=== PATIENT | female | born 1960 | race Caucasian/White ===

== ENCOUNTER 2019-08-08 15:00 | Outpatient (RCR) | payer OTHER, SELFPAY ==
--- NOTE | 2019-07-11 16:37 | PTOPEVAL ---
PHYSICAL THERAPY EVALUATION AND PLAN OF CARE Thank you for referring Cristina to [facility]. Please review, sign, date and return this plan of care ESTEPHANIA. She will be seen 1x/wk x 2 wks, 0 times 3rd week, 1 time 4th week. I agree with and certify that the following plan of care is medically necessary. Referring Physician Date Admitting Provider: Attending Provider: Gaurang Vidal MD Referring Provider: *PT Outpatient Evaluation Start: 07/11/19 14:46 Freq: Status: Active Protocol: Document 07/11/19 14:45 ALEJANDRO (Rec: 07/11/19 16:24 ALEJANDRO [id number]) Therapy Assessment Status Assessment Status Assessment Status Evaluation Outpatient Past Medical History Neurological History Hx Neurological Disorders No Significant History Cardiovascular History Hx Hypertension Yes Respiratory History Hx Asthma Yes: very slight Gastrointestinal History Hx Gastrointestinal Disorders No Significant History Genitourinary History Hx Genitourinary Disorders No Significant History Musculoskeletal History Hx Joint Replacement Yes: R 09/2017 Hx Other Musculoskeletal Disorders Yes: bilat foot pain Hematological History Hx Hematological Disorders No Significant History Endocrine History Hx Endocrine Disorders No Significant History Reproductive History Hx Reproductive Disorders No Significant History Evaluation Information Problem Diagnosis R posterior tibial tendinitis, flat foot pain Onset few months after completing PT for R TKA Subjective Information Wears ankle brace and has Query Text:As Reported By Patient/ orthotics - wears supportive Family footwear After prolonged sitting - when went to stand up - foot didn't feel like it was on her leg correctly. Orthotics and ankle brace have helped the situation. Scheduled to have another brace fabricated - customized - will come up past ankle. Received injection last week in each foot - feeling better - decreased mobility with R ankle. 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
--- NOTE | 2019-08-08 16:39 | PTOPEVAL ---
PHYSICAL THERAPY DISCHARGE SUMMARY Thank you for referring Cristina to [facility]. She was seen for 4 visits. Good progress was made, most goals were met. I agree with Cristina's discharge from physical therapy. Referring Physician Date Admitting Provider: Attending Provider: Gaurang Vidal MD Referring Provider: *PT Outpatient Evaluation Start: 07/11/19 14:46 Freq: Status: Active Protocol: Document 08/08/19 15:10 ALEJANDRO (Rec: 08/08/19 16:32 ALEJANDRO [id number]) Therapy Assessment Status Assessment Status Assessment Status Discharge Problem Subjective Information Cristina states that she will Query Text:As Reported By Patient/ have pain in her feet when she Family changes shoes. The pain will go away after she has had the new shoes on for awhile. Some increase in L foot pain today from wearing newer shoes last night with increased standing. She reports that she does her HEP on a regular basis. To receive R foot brace 08/12/19. Pain Assessment Timing of Pain Assessment Timing of Pain Assessment Assessment Pain Scale Pain Scale Used Numeric (1 - 10) Self Report Pain Assessment Right Ankle(s) Reported Pain Level 0 Pain Description Aching,Sharp,Soreness Current Pain Intensity 0 Lowest Pain Intensity 0 Greatest Pain Intensity 5 Pain Aggravating Factors Palpation,Walking Other Pain Aggravating Factors certain ankle motions - inversion as well as dorsiflexion w eversion Interventions Used By Clinicians Exercise,Manual Therapy Techniques Pain Score Pain Score 0: Self Report Lower Extremity Range of Motion Ankle/Foot Range of Motion Right Ankle Dorsiflextion With Knee Flexed 5 Range of Motion - Active Ankle/Toe Range of Motion Limitations Muscle Length Restriction,Soft Tissue Restriction Ankle Range of Motion Comments ankle maintained in neutral position Lower Extremity Muscle Strength Testing Ankle Strength Right Toe Strength Comments anterior tibialis 5 posterior tibialis 4 eversion with dorsiflexion 5 eversion with plantarflexion 5 Palpation Assessment Palpation Palpation improved mobility with medial foot - tarsals,
== END 2019-09-26 13:56 | disposition home or self-care (01) ==
LOC: ANHHIPT 15:00
PROVIDERS: PCP Internal Medicine; Visit Provider Orthopaedic Surgery
DX: M21.41 Flat foot [pes planus] (acquired), right foot (principal); M25.571 Pain in right ankle and joints of right foot
CPT/HCPCS: 97110; 97140; 97162

== ENCOUNTER 2020-03-30 00:53 | Outpatient (CLI) | payer OTHER, SELFPAY ==
[2020-03-30 19:35] LABS: SARS-CoV-2 RNA PCR Negative
== END 2020-03-30 00:54 | disposition home or self-care (01) ==
LOC: ANHCOVIDDT 00:53
PROVIDERS: PCP Internal Medicine; Visit Provider Internal Medicine Gastroenterology
DX: Z01.812 Encounter for preprocedural laboratory examination (principal); Z11.59 Encounter for screening for other viral diseases
CPT/HCPCS: 87635; C9803; U0003

== ENCOUNTER 2020-04-01 01:27 | Day surgery (SDC) | payer OTHER, SELFPAY ==
[2020-03-24 14:18] VITALS: BMI 40.3
[2020-04-01] MEDS: LACTATED RINGERS 1,000 ML 150 ML IV CONT (07:09)
[2020-04-01 07:11] VITALS: BP 152/60; PULSE 58; RESP 18; TEMP 37.2; O2SAT 99
--- NOTE | 2020-04-01 07:37 | P.PNAN_ITS ---
Anes - Initial Pre Proc Eval Procedure: Operation Date: 04/01/20 08:00 Proposed Procedures p Screening Colonoscopy - Du Winslow MD Date/Time: 04/01/20 07:37 Surgeon: Du Winslow MD Pre Op Diagnosis: neoplasm screen, pers and family hx colon polyps Patient Data Age: 59 Gender: F Height: 5 ft 5 in Weight: 109.5 kg Last Vital Signs Temp 98.9 F 04/01/20 07:11 Pulse 58 L 04/01/20 07:11 Resp 18 04/01/20 07:11 BP 152/60 H 04/01/20 07:11 Pulse Ox 99 04/01/20 07:11 Allergies Allergy/AdvReac Type Severity Reaction Status Date / Time lisinopril Allergy Intermediate Lips Swell Verified 04/01/20 07:06 Penicillins Allergy Unknown Rash Verified 04/01/20 07:06 Sulfa (Sulfonamide Allergy Unknown Rash Verified 04/01/20 07:06 Antibiotics) Home Medications Medication Instructions Recorded Confirmed Type cholecalciferol (vitamin D3) 25 2,000 unit PO DAILY 07/04/19 04/01/20 History mcg (1,000 unit) capsule omega-3 fatty acids 1,000 mg 1,000 mg PO DAILY 07/04/19 04/01/20 History capsule albuterol sulfate [Ventolin HFA] 1 puff INHALATION PRN PRN 03/24/20 04/01/20 History clindamycin HCl 600 mg PO BID 03/25/20 03/25/20 History hydrochlorothiazide 12.5 mg PO QAM 03/25/20 04/01/20 History Patient hx anesthesia problems: none Family hx anesthesia problems: none [facility] Past Medical History Medical History (Updated 04/01/20 @ 07:37 by Michael Collins MD) Asthma HTN (hypertension) Surgical History Surgical History (Updated 02/24/20 @ 09:23 by Karla Whitehead MA) History of knee replacement Social History Social History Smoking status: Never smoker Alcohol intake: never Substance use: unknown Gender identity (if verbalized by the patient): Female Spiritual care concerns: No Anes - Eval Final PreProcedure Day of Procedure 04/01/20 07:37 Patient weight: morbidly obese Heart: regular rate and rhythm Lungs: clear to auscultation Airway: Mallampati scale class II Neurological: alert and oriented Last oral intake: >/= 8 hours ASA classification: III Emergent: no Anesthetic plan: proceed Anesthesia type and monitoring: general GIVS and standard monitoring Informed Consent: The patient's anesthetic plan and its attendant risks and benefits were discussed with the patient/family/POA. Questions were solicited and answers provided to the satisfaction of the patient/family/POA.
--- NOTE | 2020-04-01 07:50 | WPDGICN ---
Assessment and Plan Assessment and plan (1) Family history of colonic polyps: Code(s): Z83.71 - Family history of colonic polyps Status: Acute Assessment and Plan: Because of patient's own personal history of colon polyps as well as family history of colon polyps in her father colonoscopy will be planned at this time and has been suggested at 5 year intervals in the future. (2) History of colon polyps: Code(s): Z86.010 - Personal history of colonic polyps Status: Acute GI Consult Note Consult date/time: 04/01/20 07:50 HPI: Cristina Sewell is a 59 year old female Seen in evaluation at the request of Dr. Teran. Patient presents for neoplasia screening. Patient has a prior history of colon polyps her father has had colon polyps. Patient states that her current weight appetite bowel movements are normal. She denies abdominal pain. She denies any bleeding. Her bowel habits are normal. Review of Systems Review of Systems: All systems reviewed & are unremarkable except as noted in HPI and below PMFSH Past Medical History Medical History Asthma HTN (hypertension) Surgical History Surgical History History of knee replacement Family History Family History Father Hypertension Family history of chronic obstructive pulmonary disease Mother Hypertension Family history of diabetes mellitus in first degree relative Grandparent Hypertension Diabetes mellitus Other Family history of Alzheimer's disease Family history of arthritis Family history of gout Family history of hearing loss Family history of lung disease Social History Social History Smoking status: Never smoker Alcohol intake: never Substance use: unknown Gender identity (if verbalized by the patient): Female Spiritual care concerns: No Meds Home Medications and Allergies Home Medications Medication Instructions Recorded Confirmed Type cholecalciferol (vitamin D3) 25 2,000 unit PO DAILY 07/04/19 04/01/20 History mcg (1,000 unit) capsule omega-3 fatty acids 1,000 mg 1,000 mg PO DAILY 07/04/19 04/01/20 History capsule albuterol sulfate [Ventolin HFA] 1 puff INHALATION PRN PRN 03/24/20 04/01/20 History clindamycin HCl 600 mg PO BID 03/25/20 03/25/20 History hydrochlorothiazide 12.5 mg PO QAM 03/25/20 04/01/20 History Allergies Allergy/AdvReac Type Severity Reaction Status Date / Time lisinopril Allergy Intermediate Lips Swell Verified 04/01/20 07:06 Penicillins Allergy Unknown Rash Verified 04/01/20 07:06 Sulfa (Sulfonamide Allergy Unknown Rash Verified 04/01/20 07:06 Antibiotics) Vital Signs Vital Signs - 24 hr 04/01/20 07:11 Temperature 98.9 F Pulse Rate 58 L Respiratory Rate 18 Blood Pressure 152/60 H Pulse Oximetry 99 Exam Narrative: Exam Narrative: Physical exam reveals patient to be alert. Vital signs are stable. HEENT exam unremarkable. Lungs are clear to auscultation and percussion. Heart is without murmur or extra sounds. Abdominal exam is somewhat obese. Bowel sounds are present soft nontender with no hepatosplenomegaly. Digital external rectal exam is normal.
[2020-04-01 08:26] VITALS: BP 113/59; PULSE 66; RESP 16; O2SAT 100
[2020-04-01 08:36] VITALS: BP 116/59; PULSE 64; RESP 22; O2SAT 100
[2020-04-01 08:46] VITALS: BP 133/80; PULSE 58; RESP 21; O2SAT 100
== END 2020-04-01 08:53 | disposition home or self-care (01) ==
PROVIDERS: PCP Internal Medicine; Visit Provider Internal Medicine Gastroenterology
PROC: 0DJD8ZZ Inspection of Lower Intestinal Tract, Via Natural or Artificial Opening Endoscopic (ICD-10-PCS; CPT 45378; principal; 2020-04-01 08:00)
DX: Z12.11 Encounter for screening for malignant neoplasm of colon (principal); D12.2 Benign neoplasm of ascending colon; D12.5 Benign neoplasm of sigmoid colon; K57.30 Diverticulosis of large intestine without perforation or abscess without bleeding; K64.8 Other hemorrhoids; I10 Essential (primary) hypertension; J45.909 Unspecified asthma, uncomplicated; Z83.71 Family history of colonic polyps; E66.01 Morbid (severe) obesity due to excess calories; Z68.41 Body mass index [BMI] 40.0-44.9, adult
CPT/HCPCS: 45385; 88305; J2001; J2704; J7120

== ENCOUNTER → 2020-04-14 13:22 | Outpatient (CLI) | payer OTHER, SELFPAY ==
--- NOTE | ~2020-04-14 | MM_ITS ---
EXAMINATION: MM screening fred BI w wen HISTORY: Screening mammogram TECHNIQUE: Craniocaudal and mediolateral oblique 3-D tomosynthesis images were obtained and synthetic 2-D images were generated. CAD analysis was submitted and interpreted. COMPARISON: 01/14/2019, 05/22/2017, 03/27/2016 bilateral digital screening mammogram examinations BREAST PARENCHYMAL COMPOSITION: There are scattered areas of fibroglandular density. FINDINGS: Stable mild fibroglandular asymmetry. There is no evidence of suspicious mass, calcificatio n, or architectural distortion to suggest malignancy in either breast. There has been no suspicious i nterval change. IMPRESSION: 1. No mammographic evidence of malignancy. 2. Recommend routine screening mammography in one year. BI-RADS Category 2: Benign finding(s). Reviewed, dictated and finalized at location A.
--- NOTE | ~2020-04-14 | DEXA_ITS ---
Bone Density Report Name: Cristina Sewell Age: 59 Sex: Female Ethnicity: White Date of : 1960 Indication: postmenopausal; screening for osteoporosis; height loss; asthma or emphysema; Referring Provider: Myrtle Lazo Study: Bone densitometry was performed. Exam Date: April 14, 2020 Accession number: [id number] Bone Density: Region BMD T-score Z-score Classification AP Spine (L1-L4) 1.091 0.4 1.9 Normal Femoral Neck (Left) 0.778 -0.6 0.7 Normal Total Hip (Left) 0.969 0.2 1.3 Normal Femoral Neck (Right) 0.792 -0.5 0.8 Normal Total Hip (Right) 0.928 -0.1 0.9 Normal Total Hip Mean 0.949 0.1 1.1 Normal World Health Organization criteria for BMD impression classify patients as: Normal (T-score at or above -1.0), Osteopenia (T-score between -1.0 and -2.5), or Osteoporosis (T-score at or below -2.5). 10-year Fracture Risk: FRAX not reported because: All T-scores for Spine Total, Hip Total, Femoral Neck at or above -1.0 Previous Exams: Region Exam Age BMD T-score BMD Change BMD Change Date g/cm2 vs Baseline vs Previous AP Spine(L1-L4) 04/14/2020 59 1.091 0.4 0.015 0.015 02/05/2015 54 1.077 0.3 Total Hip(Left) 04/14/2020 59 0.969 0.2 -0.081* -0.081* 02/05/2015 54 1.049 0.9 Total Hip(Right) 04/14/2020 59 0.928 -0.1 -0.076* -0.076* 02/05/2015 54 1.004 0.5 *Denotes significance at 95% confidence level, LSC for AP Spine = 0.022 g/cm2, LSC for Total Hip = 0.027 g/cm2 Clinical Information Provided by Patient: Has used the following medications: Vitamin D Has the following medical conditions: Asthma or Emphysema Patient maximum height was 65 Menopause Age: 50 No regular weight bearing exercise Drinks caffeinated beverages Onset of menses at age 10 Number of children 2 Impression: The patient has normal bone mass. The BMD for the Total Hip(Left) decreased, changing by -0.081 since the last DXA exam. The BMD for the Total Hip(Right) decreased, changing by -0.076 since the last DXA exam. Discussion: BONE DENSITY IS ABOVE THE MINIMUM DESIRABLE LEVEL AT ALL SKELETAL SITES TESTED. This patient?s bone mineral density is above the minimum desirable level (T-score -1.0 or better) at all sites measured. The patient should follow a healthful lifestyle (good nutrition with adequate calcium and vitamin D, and appropriate weight-bearing exercise). Follow-Up: Consider repeating this
== END ==
PROVIDERS: Visit Provider Student in an Organized Health Care Education/Training Program
DX: Z12.31 Encounter for screening mammogram for malignant neoplasm of breast (principal); Z78.0 Asymptomatic menopausal state
CPT/HCPCS: 77063; 77067; 77080

== ENCOUNTER 2021-01-27 09:37 | Outpatient (CLI) | payer OTHER, SELFPAY ==
--- NOTE | 2021-01-27 10:30 | ECG_ITS ---
Measurements Intervals Cal[place] Rate: 47 P: 36 SD: 177 QRS: -17 QRSD: 100 T: 47 QT: 410 QTc: 363 Interpretive Statements SINUS BRADYCARDIA VOLTAGE CRITERIA FOR LVH POOR R WAVE PROGRESSION, ANTERIOR LEADS ABNORMAL ECG Electronically Signed On 01-27-2021 15:54:29 CDT by Brant Matson D.O.
[2021-01-27 10:58] LABS: Basophils Percent Auto 0.6 % (0.2-1.2); Eosinophils Absolute Auto 0.2 K/mm3 (0-0.3); Eosinophils Percent Auto 4.1 % (0-4.4); Hematocrit 40.2 % (37.0-47.0); Immature Granulocyte Absolute 0.01 K/mm3 (0.00-0.031); Immature Granulocyte Percent A 0.2 % (0-0.5); Lymphocytes Absolute Auto 1.61 K/mm3 (0.9-3.2); Lymphocytes Percent Auto 32.7 % (18.3-44.2); Mean Corpuscular HGB Conc 32.3 g/dl (32-36); Monocytes Absolute Auto 0.5 K/mm3 (0.1-0.6); Monocytes Percent Auto 10.8 % (2.6-8.5); Neutrophils Absolute Auto 2.5 K/mm3 (1.3-6.7); Neutrophils Percent Auto 51.6 % (45.5-73.1); Platelet Count Result 166 k/mm3 (150-375); Red Blood Count 4.06 M/mm3 (4.2-5.4); Red Cell Distribution Width 12.2 % (11.5-14.5); White Blood Count 4.9 K/mm3 (4.5-10.0)
[2021-01-27 11:07] LABS: Prothrombin Time 13.8 Seconds (11.1-14.7)
[2021-01-27 11:08] LABS: Partial Thromboplastin Time 31.8 SECONDS (22.3-36.8)
[2021-01-27 11:09] LABS: Anion Gap 8 mmol/L (8-16); Blood Urea Nitrogen 18 mg/dL (7-17); Calcium 9.7 mg/dL (8.4-10.2); Carbon Dioxide 27 mmol/L (22-30); Chloride 106 mmol/L (98-107); Estimated Glomerular Filt Rate > 60; Glucose 83 mg/dL (65-105); Potassium 3.8 mmol/L (3.4-5.0); Sodium 141 mmol/L (137-145)
[2021-01-27 11:11] LABS: Hemoglobin A1C 5.3 % (<5.7)
[2021-01-27 11:39] LABS: Add Urine Microscopic? YES; Appearance Urine Clear (Clear); Bilirubin Urine Negative (Negative); Blood Urine 1+ (Negative); Color Urine Yellow (Yellow); Glucose Urine UA Negative (Negative); Ketones Urine Negative (Negative); Leukocyte Esterase Ur 3+ LEU/UL (Negative); Nitrate Urine Negative (Negative); Protein Urine Negative (Negative); Specific Grav Ur 1.015 (1.001-1.035); Urobilinogen Urine Negative mg/dL (<2.0)
[2021-01-27 12:37] LABS: Bacteria Urine Trace /hpf; RBC Urine 0-2 /hpf (0-2); Squamous Epithelial Cell Urine Few /hpf (Few); WBC Urine 0-3 /hpf (0-3)
[2021-01-27 18:34] LABS: Urine Cotinine NEGATIVE
== END 2021-01-27 09:38 | disposition home or self-care (01) ==
PROVIDERS: PCP Internal Medicine; Visit Provider Orthopaedic Surgery
DX: M17.12 Unilateral primary osteoarthritis, left knee (principal); Z01.818 Encounter for other preprocedural examination; R94.31 Abnormal electrocardiogram [ECG] [EKG]
CPT/HCPCS: 80048; 80307; 81001; 82040; 83036; 85025; 85610; 85730; 86850; 86900; 86901; 87081; 93005

== ENCOUNTER → 2021-02-05 00:34 | Outpatient (CLI) | payer OTHER, SELFPAY ==
[2021-02-05 17:56] LABS: SARS-CoV-2 RNA PCR Negative
== END ==
PROVIDERS: PCP Internal Medicine; Visit Provider Orthopaedic Surgery
DX: Z01.812 Encounter for preprocedural laboratory examination (principal); Z20.822 Contact with and (suspected) exposure to COVID-19
CPT/HCPCS: C9803; U0003; U0005

== ENCOUNTER 2021-02-09 16:13 | Observation (INO) | payer OTHER, SELFPAY ==
[2021-01-27 09:53] VITALS: BP 145/60; PULSE 59; RESP 18; TEMP 37.4; O2SAT 99; BMI 39.6
--- NOTE | 2021-02-07 12:51 | WPDANESEPPF ---
Anes - Initial Pre Proc Eval Procedure: Operation Date: 02/08/21 07:30 Proposed Procedures p Left Total Knee Arthroplasty - Yony Stuart MD Date/Time: 02/07/21 12:51 Surgeon: Yony Stuart MD Pre Op Diagnosis: left knee djd Patient Data Age: 60 Gender: F Height: 1.64 m Weight: 106.4 kg Last Vital Signs Temp 37.4 C 01/27/21 09:53 Pulse 59 L 01/27/21 09:53 Resp 18 01/27/21 09:53 BP 145/60 H 01/27/21 09:53 Pulse Ox 99 01/27/21 09:53 Allergies Allergy/AdvReac Type Severity Reaction Status Date / Time lisinopril Allergy Severe FACIAL Unverified 02/08/21 06:16 SWELLING,Lips Swell clindamycin Allergy Intermediate RASH, Verified 01/31/21 09:52 Nausea, Vomiting Penicillins Allergy Intermediate Rash, Verified 01/31/21 09:52 NAUSEA, VOMITING Sulfa (Sulfonamide Allergy Intermediate Hives / Unverified 02/08/21 06:16 Antibiotics) Red Face,Rash Home Medications Medication Instructions Recorded Confirmed Type cholecalciferol (vitamin D3) 25 2,000 unit PO DAILY 07/04/19 02/08/21 History mcg (1,000 unit) capsule omega-3 fatty acids 1,000 mg 1,000 mg PO DAILY 07/04/19 02/08/21 History capsule albuterol sulfate [Ventolin HFA] 1 puff INHALATION PRN PRN 03/24/20 02/08/21 History hydrochlorothiazide 12.5 mg tablet 12.5 mg PO QAM #90 tablet 07/27/20 02/08/21 Rx ciprofloxacin HCl 500 mg tablet 500 mg PO Q12H 14 Days #28 tablet 01/28/21 02/08/21 Rx ECG: Date of Service: 01/27/21 Procedure(s): CA 12 lead EKG Accession Number(s): [id number] cc: ~ Measurements Intervals [place] Rate: 47 P: 36 NM: 177 QRS: -17 QRSD: 100 T: 47 QT: 410 QTc: 363 Interpretive Statements SINUS BRADYCARDIA VOLTAGE CRITERIA FOR LVH POOR R WAVE PROGRESSION, ANTERIOR LEADS ABNORMAL ECG Electronically Signed On 01-27-2021 15:54:29 CDT by Brant Matson D.O. Dictated By: Brant Matson DO 01/27/21 1554 Patient hx anesthesia problems: none Family hx anesthesia problems: none PMFSH Past Medical History Medical History (Updated 02/07/21 @ 12:53 by Diego Lynn MD) Asthma Dyslipidemia Family history of colonic polyps History of colon polyps HTN (hypertension) Left knee DJD Obesity Preoperative clearance Urge incontinence UTI (urinary tract infection) Vaccine counseling Wears glasses Surgical History Surgical History History of arthroplasty of right knee History of knee replacement Family History Family History Father Hypertension Family history of chronic obstructive pulmonary disease Mother Hypertension Family history of diabetes mellitus in first degree relative Grandparent Hypertension Diabetes mellitus Other Family history of Alzheimer's disease Family history of arthritis Family history of gout Family history of hearing loss Family history of lung disease Social History Social History Second hand tobacco smoke exposure: No Alcohol intake: never Substance use: never Substance use type: does not use Living arrangements: with family Additional living arrangements comments: HUSB Gender identity (if verbalized by the patient): Female Spiritual care concerns: No Anes - Eval Final PreProcedure Day of Procedure 02/07/21 12:51 Patient weight: obese Heart: regular rate and rhythm Lungs: clear to auscultation and normal air movement Airway: Mallampati scale class II Neurological: alert and oriented Last oral intake: >/= 8 hours ASA classification: III Emergent: no A
--- NOTE | 2021-02-07 12:55 | WPDANESPNB ---
Anes - Peripheral Nerve Block Date/Time: 02/07/21 12:55 I have discussed with the patient/family/POA the placement of a peripheral nerve block for post-operative pain management, including associated risks, benefits, complications, and side effects. Alternative methods of post-operative analgesia were detailed. Questions were solicited and answers provided to the satisfaction of the patient/family/POA. Time-Out: A pre-procedural Time-Out was completed immediately before starting the procedure and confirmed: Patient Identification, Site, Procedure, Patient Position and the Availability of Requisite Equipment. Clinical Indications: Acute post-operative pain management requested by the operative surgeon. Nerve Block Insertion Note Anes-nerve block: adductor canal left Patient position: supine Skin prep: chlorhexidine Needle: 22 gauge, stimulating, insulated echogenic needle. Needle length: 80 mm Technique: ultrasound Technique comment: in plane Injectate: bupivacaine 0.5% with epi 5 mcg/ml (30cc) Observations: tolerated well Complications: none Procedure start time:: 725 Procedure end time:: 730
[2021-02-08] VITALS (23 sets, daily range): BP systolic 109–140; BP diastolic 37–71; PULSE 55–94; RESP 12–18; TEMP 36.1–36.7; O2SAT 92–100
[2021-02-08] MEDS: ACETAMINOPHEN 500 MG TABLET 1000 MG PO (06:26)
[2021-02-08] MEDS: LACTATED RINGERS 1,000 ML 30 ML IV CONT ×3 (06:33→13:00)
--- NOTE | 2021-02-08 07:20 | WPDHPUPDATE1 ---
History and Physical Update Update Date/Time: 02/08/21 07:20 History and Physical has been reviewed, including an updated exam of the patient. There are NO changes in the patient's condition. Risks, benefits, and alternatives have been discussed and questions answered. Patient agrees to proceed with procedure.
[2021-02-08] MEDS: TRANEXAMIC ACID 1,000MG/ISO100 1,000 MG/100 ML BAG 200 MG IVPB (07:24)
[2021-02-08] MEDS: ceFAZolin 2 GM/D5W 50 ML 2 GM/50 ML BAG IVPB ×3 (07:35→23:07)
[2021-02-08] MEDS: GENTAMICIN BONE CEMENT REFOBACIN 1 EACH TOPICAL (09:13)
[2021-02-08] MEDS: TRANEXAMIC ACID 1,000 MG/10 ML AMPUL 1000 MG IV PUSH (09:52)
[2021-02-08] MEDS: fentaNYL CITRATE INJ (*CRX) 100 MCG/2 ML VIAL 25 MCG IV PUSH ×7 (11:12→13:04)
--- NOTE | 2021-02-08 11:30 | P.OP_ITS ---
Procedure Note - Detailed Date of Procedure 02/08/21 Pre-op Diagnosis left knee djd Post-op Diagnosis same Procedure Performed L TKA Surgeon Yony Stuart MD Anesthesia general Indications L KNEE DJD Description of Procedure THE LEFT KNEE WAS PREPPED AND DRAPED IN THE STERILE FASHION. A MIDLINE SKIN INCISION WAS MADE. A MEDIAL PARAPATELLAR ARTHROTOMY WAS MADE. THE PATELLA WAS EVERTED. THERE WAS TRICOMPARTMENT DJD. THERE WAS MINIMAL PATELLA DJD. AN INTR AMEDULLARY LACI WAS PLACED IN THE FEMUR. A DISTAL FEMORAL CUT WAS MADE IN 5 DEGREES OF VALGUS REMOVING APPROXIMATELY 9 MM OF BONE FROM THE DISTAL FEMUR. THE FEMUR WAS SIZED TO 72.5. A 72.5 FEMORAL CUTTING BLOCK WAS PLACED IN 3 DEGREES OF EXTERNAL ROTATION AND IN ALIGNMENT WITH CARMELO'S LINE AND THE TRANSEPICONDYLAR AXIS. ANTERIOR POSTERIOR AND CHAMFER CUTS WERE MADE. THE CUTS WERE EXCELLENT. NEXT AN INTRAMEDULLARY CUTTING GUIDE WAS PLACED IN THE TIBIA. A TRANS TIBIAL CUT WAS MADE ALONG THE LONG AXIS OF THE TIBIA. APPROXIMATELY 10 MM OF BONE WAS REMOVED FROM THE HIGH SIDE OF THE TIBIA. THE TIBIA WAS THEN PLANED TO A SMOOTH SURFACE. POSTERIOR FEMORAL OSTEOPHYTES WERE REMOVED FROM THE FEMORAL CONDYLES. A 75 TIBIAL TRIAL WAS PLACED IN ALIGNMENT WITH THE 1/3 MEDIAL ASPECT OF THE TIBIAL TUBERCLE. THEN A 72.5 FEMORAL TRIAL COMPONENT WAS PLACED. BOTH HAD EXCELLENT FITS. EVENTUALLY AN 18 MM POLYETHYLENE TRIAL COMPONENT WAS PLACED. THE KNEE WAS TAKEN THROUGH A RANGE OF MOTION. THE KNEE CAME OUT TO FULL EXTENSION. THERE WAS NO ABNORMAL TILT TO THE PATELLA. THERE WAS GOOD A/P AND VARUS/VALGUS STABILITY. THERE WAS NO EXCESSIVE ROLL BACK WITH FLEXION. THE TRIAL COMPONENTS WERE REMOVED. THEN A 72.5 FEMORAL COMPONENT AND 75 TIBIAL COMPONENT WITH A 18 MM POLYETHYLENE COMPONENT WERE CEMENTED INTO PLACE. ONCE THE CEMENT WAS HARD THE KNEE WAS TAKEN THROUGH A ROM AGAIN AND FOUND TO BE STABLE WITH NO PATELLA TILT NO EXCESSIVE ROLL BACK WITH FLEXION AND GOOD STABILITY WITH COMPLETE AND FULL EXTENSION. THE KNEE WAS IRRIGATED WITH STERILE BETADINE AND WATER FOR ABOUT 3 MINUTES. THE BLEEDERS WERE CAUTERIZED. THE ARTHROTOMY WAS REPAIRED WITH NUMBER 1 VICRYL. THE SUB CUTANEOUS LAYER WITH 2-0 VICRYL AND THE SKIN WITH JUNE. THE WOUND WAS WASHED AND A STERILE DRESSING WAS APPLIED. PATIENT WAS EXTUBATED. Estimated Blood Loss 200 Drains No Pathology none sent Complications No immediate complications Condition stable Disposition PACU
[2021-02-08] MEDS: HYDROmorphone HCL INJ (*CRX) 1 MG/ML SYR 0.25 MG IV PUSH ×8 (11:37→12:45)
--- NOTE | 2021-02-08 11:48 | SUR.PHASEI ---
Simple mask removed at 1148.
--- NOTE | 2021-02-08 12:22 | SUR.PHASEI ---
Called Dr. Lynn about maybe doing a femoral block since the current block isn't working. Patient is being watched in room 17 in outpatient since we don't have a room upstairs at this time. was updated.
[2021-02-08] MEDS: SODIUM CHLORIDE 0.9% IV 1,000 ML 125 ML IV CONT ×2 (15:04→23:07)
[2021-02-08] MEDS: ONDANSETRON INJ 4 MG/2 ML VIAL IV PUSH (15:04)
--- NOTE | 2021-02-08 15:19 | ADMGEN ---
This patient, Cristina Sewell, was admitted to Medical Room 342-01. Patient/family oriented to hospital policies and general routines including ID bracelet, bed and alarms, visiting hours, pain management, procedures, bathroom and other care routines, personal items, smoking policy, room service/diet, and visiting hours. Information on how to activate the Rapid Response Team has been discussed. Patient/Family are encouraged to report perceived risks to care and to ask questions if they do not understand what they are told or what they should do.
[2021-02-08] MEDS: oxyCODONE/ACETAMINOPHEN (*CRX) 5-325 MG TABLET 1 TABLET PO ×2 (15:51→20:02)
[2021-02-08] MEDS: DOCUSATE SODIUM 100 MG CAPSULE PO (17:19)
[2021-02-08] MEDS: FAMOTIDINE 20 MG TABLET PO (20:02)
--- NOTE | ~2021-02-09 | XR_ITS ---
EXAMINATION: XR knee LT 2V DATE: 02/08/2021 11:17 CDT INDICATION: Left total knee arthroplasty TECHNIQUE: 2 views left knee FINDINGS: There is a left total knee arthroplasty in expected position. Subcutaneous gas with fluid and air in the joint and overlying skin geeta are consistent with recent surgery. No evidence of pe riprosthetic fracture. IMPRESSION: 1. Recent left total knee arthroplasty. Reviewed, dictated and finalized at location A.
[2021-02-09] MEDS: oxyCODONE/ACETAMINOPHEN (*CRX) 5-325 MG TABLET 1 TABLET PO ×5 (00:02→20:17)
[2021-02-09 04:22] VITALS: BP 127/48; PULSE 89; RESP 16; TEMP 36.6; O2SAT 94
[2021-02-09 05:39] LABS: Basophils Percent Auto 0.2 % (0.2-1.2); Hematocrit 34.6 % (37.0-47.0); Hemoglobin 11.3 g/dL (12.0-15.0); Immature Granulocyte Absolute 0.02 K/mm3 (0.00-0.031); Immature Granulocyte Percent A 0.2 % (0-0.5); Lymphocytes Absolute Auto 0.72 K/mm3 (0.9-3.2); Lymphocytes Percent Auto 8.5 % (18.3-44.2); Mean Corpuscular HGB Conc 32.7 g/dl (32-36); Mean Corpuscular Hemoglobin 32.7 pg (26-34); Mean Platelet Volume 9.6 fl (7.4-10.4); Monocytes Absolute Auto 0.6 K/mm3 (0.1-0.6); Monocytes Percent Auto 7.4 % (2.6-8.5); Neutrophils Absolute Auto 7.1 K/mm3 (1.3-6.7); Neutrophils Percent Auto 83.7 % (45.5-73.1); Platelet Count Result 121 k/mm3 (150-375); Red Blood Count 3.46 M/mm3 (4.2-5.4); Red Cell Distribution Width 12.4 % (11.5-14.5); White Blood Count 8.5 K/mm3 (4.5-10.0)
[2021-02-09 05:48] LABS: Anion Gap 7 mmol/L (8-16); Blood Urea Nitrogen 16 mg/dL (7-17); Calcium 8.6 mg/dL (8.4-10.2); Carbon Dioxide 24 mmol/L (22-30); Chloride 107 mmol/L (98-107); Estimated CRCL calculation 87 ml/min; Estimated Glomerular Filt Rate > 60; Glucose 136 mg/dL (65-105); Potassium 3.7 mmol/L (3.4-5.0); Sodium 138 mmol/L (137-145)
[2021-02-09] MEDS: ceFAZolin 2 GM/D5W 50 ML 2 GM/50 ML BAG IVPB (06:11)
[2021-02-09 08:22] VITALS: BP 124/53; PULSE 111; RESP 20; TEMP 36.7; O2SAT 95
[2021-02-09] MEDS: ASPIRIN 325 MG ENTERIC TABLET 650 MG PO (09:10)
[2021-02-09] MEDS: DOCUSATE SODIUM 100 MG CAPSULE PO ×2 (09:10→16:30)
[2021-02-09] MEDS: hydroCHLOROthiazide 12.5 MG CAPSULE PO (09:10)
[2021-02-09] MEDS: FAMOTIDINE 20 MG TABLET PO ×2 (09:11→20:16)
[2021-02-09 14:00] VITALS: BP 135/50; PULSE 89; RESP 20; TEMP 36.7; O2SAT 94
--- NOTE | 2021-02-09 16:03 | PM.PNORT ---
Progress Note: A&P Additional Plan POD 1 WITH STABLE HGB. HAD SYNCOPAL EPISODE. WILL OBSERVE FOR NOW. I WOULD LIKE TO SEE HER FREE OF SYNCOPE FOR AT LEAST 24 HOURS SINCE HER EPISODE. SHE WILL MOST LIKELY BE DISCHARGED TOMORROW. Subjective Subjective Date/Time Seen: 02/09/21 16:03 POD 1 DOING WELL. HAD A SYNCOPAL EPISODE TODAY. ASYMPTOMATIC CURRENTLY, NO CP OR SOB. NO CALF PAIN Exam Extrem: Other: VSS AFEBRILE DRESSING DRY NV INTACT NEG HOMANS SIGN, CALF SOFT NON TENDER Objective Data Vital Signs Vital Signs: Vital Signs - 24 hr 02/08/21 16:30 02/08/21 20:22 02/08/21 23:22 Temperature 36.7 C 36.2 C L 36.3 C L Pulse Rate 70 83 81 Respiratory Rate 18 18 16 Blood Pressure 114/44 L 129/47 L 109/44 L Pulse Oximetry 96 97 96 02/09/21 04:22 02/09/21 08:22 02/09/21 14:00 Temperature 36.6 C 36.7 C 36.7 C Pulse Rate 89 111 H 89 Respiratory Rate 16 20 20 Blood Pressure 127/48 L 124/53 L 135/50 L Pulse Oximetry 94 95 94 Intake/Output Intake/Output: Intake & Output 02/06/21 02/07/21 02/08/21 02/09/21 23:59 23:59 23:59 23:59 Intake Total 2280 730 Output Total 500 1350 Balance 1780 -620 Meds/Results Medications: Active Medications Generic Name Dose Route Start Last Admin Trade Name Freq PRN Reason Stop Dose Admin Acetaminophen 1,000 mg 02/08/21 14:37 Acetaminophen 500 Mg Tablet PO Q6H PRN Pain Rated 1-3 Albuterol 1 puff 02/08/21 14:37 Albuterol Sulfate (*Sp) Aerosol 1 Puff INHALATION PRN PRN Shortness Of Breath Aspirin 650 mg 02/09/21 09:00 02/09/21 09:10 Aspirin 325 Mg Enteric Tablet PO 650 mg DAILY DELL Administration Diazepam 5 mg 02/08/21 14:37 Diazepam (*Crx) 5 Mg Tablet PO Q8H PRN Spasms Diphenhydramine HCl 25 mg 02/08/21 14:37 Diphenhydramine Hcl Inj 50 Mg/Ml Vial IV PUSH Q6H PRN Itching Docusate Sodium 100 mg 02/08/21 17:00 02/09/21 09:10 Docusate Sodium 100 Mg Capsule PO 100 mg BID DELL Administration Famotidine 20 mg 02/08/21 21:00 02/09/21 09:11 Famotidine 20 Mg Tablet PO 20 mg Q12HR DELL Administration Hydrochlorothiazide 12.5 mg 02/09/21 09:00 02/09/21 09:10 Hydrochlorothiazide 12.5 Mg Capsule PO 12.5 mg QAM DELL Administration Naloxone HCl 0.1 mg 02/08/21 14:37 Naloxone Hcl 0.4 Mg/Ml Vial IV PUSH Q2M PRN Opiate Reversal Ondansetron HCl 4 mg 02/08/21 14:37 02/08/21 15:04 Ondansetron Inj 4 Mg/2 Ml Vial IV PUSH 4 mg Q4H PRN Administration Nausea And Vomiting Oxycodone HCl 10 mg 02/08/21 14:37 Oxycodone Hcl (*Crx) 5 Mg Tab Ir PO Q4H PRN Pain Rated 7-10 Oxycodone/Acetaminophen 1 tablet 02/08/21 14:37 02/09/21 13:35 Oxycodone/Acetaminophen (*Crx) 5-325 Mg Tablet PO 1 tablet Q4H PRN Administration Pain Rated 4-6 Radiology Results: ITS Impressions Knee X-Ray 02/08/21 11:17 IMPRESSION: 1. Recent left total knee arthroplasty. Labs Labs: Laboratory Results - last 24 hr 02/09/21 02/09/21 05:25 05:25 WBC 8.5 RBC 3.46 L Hgb 11.3 L Hct 34.6 L MCV 100.0 MCH 32.7 MCHC 32.7 RDW 12.4 Plt Count 121 L MPV 9.6 Immature Gran % (Auto) 0.2 Neut % (Auto) 83.7 H Lymph % (Auto) 8.5 L Island % (Auto) 7.4 Eos % (Auto) 0.0 Baso % (Auto) 0.2 Lymph # (Auto) 0.72 L Island # (Auto) 0.6 Eos # (Auto) 0.0 Baso # (Auto) 0.0 Abs Immat Gran (auto) 0.02 Absolute Neuts (auto) 7.1 H Absolute Nucleated RBC 0.0 Nucleated RBC % 0.0 Sodium 138 Potassium 3.7 Chloride 107 Carbon Dioxide 24 Anion Gap 7 L BUN 16 Creatinine 0.70 Estim Creat Clear Calc 87 Estimated GFR > 60 Glucose 136 H Calcium 8.6
[2021-02-09 20:37] VITALS: BP 142/56; PULSE 91; RESP 16; TEMP 36.6; O2SAT 100
[2021-02-10 05:40] VITALS: BP 124/55; PULSE 106; RESP 18; TEMP 38.2; O2SAT 96
[2021-02-10] MEDS: oxyCODONE/ACETAMINOPHEN (*CRX) 5-325 MG TABLET 1 TABLET PO ×2 (05:41→09:55)
[2021-02-10 08:45] VITALS: BP 132/55; PULSE 102; RESP 20; TEMP 37.7; O2SAT 96
[2021-02-10] MEDS: FAMOTIDINE 20 MG TABLET PO (09:52)
[2021-02-10] MEDS: DOCUSATE SODIUM 100 MG CAPSULE PO (09:52)
[2021-02-10] MEDS: ASPIRIN 325 MG ENTERIC TABLET 650 MG PO (09:52)
[2021-02-10] MEDS: hydroCHLOROthiazide 12.5 MG CAPSULE PO (09:52)
--- NOTE | 2021-02-10 13:14 | PM.PNORT ---
Progress Note: A&P Assessment and Plan (1) S/P total knee arthroplasty: Qualifiers: Laterality: left Qualified Code(s): Z96.652 - Presence of left artificial knee joint Code(s): Z96.659 - Presence of unspecified artificial knee joint Status: Acute Assessment and Plan: POD #2: Left TKA No syncopal episodes today. No CP. No SOB. Continue PT/OT. WBAT. [place]. FALL RISK. Continue pain control. Ice. SCDs. Incentive spirometry. DVT prophylaxis. Monitor dressing. Change prior to discharge. Dispo: Home with Home Health Subjective Subjective Date/Time Seen: 02/10/ 13:14 POD #2: Left TKA No new complaints. Feeling better today. No recurrent syncopal episodes. Review of Systems Review of Systems: All systems reviewed & are unremarkable except as noted in HPI and below Constitutional: Constitutional: Denies fever(s) and Denies headache(s) ENT: Denies headache(s) Cardiovascular: Cardiovascular: Denies chest pain, Denies diaphoresis, Denies palpitations and Denies dyspnea Respiratory: Respiratory: Denies dyspnea Gastrointestinal: Gastrointestinal: Denies abdominal pain, Denies constipation, Denies nausea and Denies vomiting Genitourinary: Genitourinary: Reports nocturia and Denies dysuria Musculoskeletal: Musculoskeletal: Reports arthralgias (Left Knee ) and Reports joint swelling (Left Knee ) Neurologic: Denies headache(s) Endocrine: Endocrine: Denies palpitations Exam Const: General: comfortable and no acute distress Resp: Effort & Inspection: normal respiratory effort Cardio: Rate: regular rate Rhythm: regular rhythm GI: GI Palp: Yes Soft to palpation, No Tenderness to palpation present (GI) and No Guarding due to palpation present (GI) Skin: Wounds: wounds noted Other: Incision c/d/i. No surrounding redness/warmth. No hematoma. Mild ecchymosis. No wound dehiscence Neuro: Cognition (Neuro): normal cognition Other: NV intact aside from block. Moves toes. Sensation intact to light touch. +ankle dorsiflexion/plantarflexion. Extrem: Right lower extremity: normal to inspection, full ROM and knee Details: normal to inspection and normal ROM; no tenderness and no swelling Left lower extremity: normal to inspection, full ROM and knee Details: tenderness, swelling, abnormal ROM (ROM limited due to pain/consistent with recent surgery ) and other Other: Incision left TKA dressing c/d/i. No hematoma. No signs of infection. No wound dehiscence. Psych: Mental Status: mental status grossly normal Objective Data Vital Signs Vital Signs: Vital Signs - 24 hr 02/09/21 14:00 02/09/21 20:37 02/10/21 05:40 Temperature 36.7 C 36.6 C 38.2 C H Pulse Rate 89 91 106 H Respiratory Rate 20 16 18 Blood Pressure 135/50 L 142/56 H 124/55 L Pulse Oximetry 94 100 96 02/10/21 08:45 Temperature 37.7 C H Pulse Rate 102 H Respiratory Rate 20 Blood Pressure 132/55 L Pulse Oximetry 96 Intake/Output Intake/Output: Intake & Output 02/07/21 02/08/21 02/09/21 02/10/21 23:59 23:59 23:59 23:59 Intake Total 2280 1060 660 Output Total 500 1350 Balance 1780 -290 660 Meds/Results Medications: Active Medications Generic Name Dose Route Start Last Admin Trade Name Freq PRN Reason Stop Dose Admin Acetaminophen 1,000 mg 02/08/21 14:37 Acetaminophen 500 Mg Tablet PO Q6H PRN Pain Rated 1-3 Albuterol 1 puff 02/08/21 14:37 Albuterol Sulfate (*Sp) Aerosol 1 Puff INHALATION PRN PRN Shortness Of Breath Aspirin 650 mg 02/09/21 09:00 02/10/21 09:52 Aspirin 325 Mg Enteric Tablet PO 650 mg DAILY DELL Administration Diazepam 5 mg 02/08/21 14:37 Diazepam (*Crx) 5 Mg Tablet PO Q8H PRN Spasms Diphenhydramine HCl 25 mg 02/08/21 14:37 Diphenhydramine Hcl Inj 50 Mg/Ml Vial IV PUSH Q6H PRN Itching Docusate Sodium 100 mg 02/08/21 17:00 02/10/21 09:52 Docusate Sodium 100 Mg Capsule PO 100 mg BID SC
--- NOTE | 2021-02-10 14:25 | PCDIET ---
On 02/10/21, the student, [ Maria Victoria Berkowitz], provided care and completed [facility] documentation on this patient. I have reviewed the student's documentation and agree with the findings.
[2021-02-10 14:31] VITALS: BP 109/47; PULSE 98; RESP 20; TEMP 37.5; O2SAT 97
--- NOTE | 2021-02-10 15:23 | PC.NURSE ---
On 02/10/21, the student, [ Maria Victoria Berkowitz], provided care and [facility]. I have reviewed the student's documentation and agree with the findings.
--- NOTE | 2021-02-10 16:24 | PM.DS ---
DS: Admitting Diagnosis Admitting Diagnosis Admitting Diagnosis: Left knee DJD DS: Discharge Diagnosis Discharge Diagnosis (1) S/P total knee arthroplasty: Qualifiers: Laterality: left Qualified Code(s): Z96.652 - Presence of left artificial knee joint Code(s): Z96.659 - Presence of unspecified artificial knee joint Status: Acute Assessment and Plan: POD #2: Left TKA No syncopal episodes today. No CP. No SOB. Continue PT/OT. WBAT. [place]. FALL RISK. Continue pain control. Ice. SCDs. Incentive spirometry. DVT prophylaxis. Monitor dressing. Change prior to discharge. Dispo: Home with Home Health DS: Summary Hospital Course Reason for hospitalization: left total knee arthroplasty Hospital Course: 50-year-old female admitted to the hospital status post left total knee arthroplasty by Dr. Stuart for postoperative medical management, pain control and mobilization with PT and OT. Patient struggled on postop day 1 with a syncopal event. On POD# 2 her pain has been well controlled and she has progressed well PT and OT. She has been cleared by Physical and Occupational therapy to be discharged home on home health. will follow-up with patient in 3 weeks as an outpatient. Her egeta will be removed on the 14th day after surgery and a dressing will be placed by the home health RN. Status at Discharge Functional status at discharge: uses cane/walker Overall status at discharge: patient is progressing back to baseline Time Spent with Patient Time attestation: Total time spent providing and/or coordinating discharge services: Exam Const: General: comfortable and no acute distress Resp: Effort & Inspection: normal respiratory effort Cardio: Rate: regular rate Rhythm: regular rhythm Skin: Wounds: wounds noted Other: Incision c/d/i. No surrounding redness/warmth. No hematoma. Mild ecchymosis. No wound dehiscence Neuro: Cognition (Neuro): normal cognition Other: NV intact aside from block. Moves toes. Sensation intact to light touch. +ankle dorsiflexion/plantarflexion. Extrem: Right lower extremity: normal to inspection, full ROM and knee Details: normal to inspection and normal ROM; no tenderness and no swelling Left lower extremity: normal to inspection, full ROM and knee Details: tenderness, swelling, abnormal ROM (ROM limited due to pain/consistent with recent surgery ) and other Other: Incision left TKA dressing c/d/i. No hematoma. No signs of infection. No wound dehiscence. Psych: Mental Status: mental status grossly normal Discharge Plan Discharge Attending physician on discharge: Yony Stuart Discharging Clinician: Alissa Aparicio Anticipated Discharge Date/Time: 02/10/21 14:59 Patient Disposition: Home Health Service Activity: may shower, no driving and follow weight bearing status Diet: as tolerated Wound Care Instructions: follow printed instructions Discharge Instructions: Per Care Coordination: [facility] will contact you prior to their first visit. [facility] will follow for RN and PT/OT eval and treat. [facility] can be contacted at [phone]. Post Op Total Knee Replacement Instructions Dr. Yony Stuart [phone] ? Your dressing will be changed prior to your discharge. You will be sent home with one additional dressing to be changed in 5 days by the [facility] RN. Your geeta will be removed on the 14th day after surgery and steri-strips will be placed. ? You may shower with your dressing but do not submerge in a bath tub. ? Do not drive or operate machinery until you are released by Dr. Stuart. ? Do not walk without a walker for any reason until you are released by Dr. Stuart. ? Continue to use your ice machine. Please use a towel or pillow case to protect your skin before applying your ice machine. ? Do NOT place a pillow under your knee. You may use a pillow from the calf down if needed. ? You may begin
== END 2021-02-10 16:15 | disposition home health service (06) ==
LOC: ANHSURGERY 16:17 → ANH3MED 16:17
PROVIDERS: Admitting Provider Orthopaedic Surgery; PCP Internal Medicine; Visit Provider Orthopaedic Surgery
PROC: (CPT 27447; principal; 2021-02-08 07:30)
DX: M17.12 Unilateral primary osteoarthritis, left knee (principal); J45.909 Unspecified asthma, uncomplicated; I10 Essential (primary) hypertension; N39.41 Urge incontinence; G89.18 Other acute postprocedural pain; R55 Syncope and collapse; E66.9 Obesity, unspecified; Z68.39 Body mass index [BMI] 39.0-39.9, adult; Z86.010 Personal history of colon polyps; Z96.651 Presence of right artificial knee joint
CPT/HCPCS: 27447; 64447; 36415; 73560; 80048; 80307; 81001; 82040; 83036; 85025; 85610; 85730; 86850; 86900; 86901; 87081; 93005; 97110; 97116; 97161; 97165; 97530; 97535; A9270; C1713; C1776; C9803; G0378; J0131; J0171; J0690; J1170; J2250; J2270; J2405; J2704; J2795; J3010; J7030; J7120; U0003; U0005

== ENCOUNTER 2021-04-11 10:00 | Outpatient (RCR) | payer OTHER, SELFPAY ==
--- NOTE | 2021-03-07 15:59 | PTOPEVAL ---
Thank you for referring Cristina Sewell to [facility].? The patient is scheduled to be seen for therapy? 2 x/week for 6-8 weeks. Please review, sign, date and return this plan of care ESTEPHANIA. I agree with and certify that the following plan of care is medically necessary. Referring Physician Date Attending Provider: Yony Stuart MD Diagnosis left TKR Onset 02/08/21 Additional Evaluation Detail She received home health therapy for 2-3 wks. Subjective Information She is using a walker for her Query Text:As Reported By Patient/ mobility and performing HEP 1x/ Family day. She is limited with her tolerance with walking, heavier clipper automatic or daily activities. She is limited with squating motion. She is carrying up to 10#, but is not using the walker when carrying objects. She performs yardwork, but has not performed since surgery. 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 She did not perform a walking or fitness program. Pain Assessment Self Report Pain Assessment Left Knee(s) Reported Pain Level 2 Pain Description Aching,Tender on Palpation, Tightness Pain Frequency Acute,Continuous Lowest Pain Intensity 2 Greatest Pain Intensity 4 Pain Aggravating Factors Exercise/Activity,Lifting, Walking Pain Behaviors None Lower Extremity Range of Motion Knee Range of Motion Right Knee Flexion Range of Motion - Active 120 Knee Extension Range of Motion - Active 0 Left Knee Flexion Range of Motion - Active 98 Knee Extension Range of Motion - Active -9 Lower Extremity Muscle Strength Testing General Lower Extremity Strength Gross Lower Extremity Strength right hip flex:4/5 ext: 4-/5, abduction: 3+/5 right knee flex: 4/5, ext: 4+/ 5 Hip Strength Left Hip Flexion Strength 3+ Fair + Hip Extension Strength 3 Fair Hip Abduction Strength 3- Fair - Hip Medial Rotation Strength 3+ Fair + Hip Lateral Rotation Strength 3+ Fair + Knee Strength Left Knee Flexion Strength 3- Fair - Knee Extension Strength 4- Good - Posture Standing Position Weight Distribution Weight Shifted Right
--- NOTE | 2021-04-11 11:56 | PTOPEVAL ---
Physical Therapy Progress Note/Discharge Note Thank you for referring Cristina Sewell to [facility].? Cristina has received 11 therapy visits to address leg impairments related to knee surgery. See summary below for her progress. She has partially achieved her therapy goals at this time. Will plan to DC skilled therapy services at this time. Please review, sign, date and return this discharge summary ESTEPHANIA. I agree with and certify that the following plan of care is medically necessary. Referring Physician Date Attending Provider: Yony Stuart MD Diagnosis left TKR Onset 02/08/21 Additional Evaluation Detail She plans to RTW on 04/13/21. Subjective Information She is using the cane for Query Text:As Reported By Patient/ community, but no AD in the Family house. Performing her HEP 1x/day. She has performed minimal yardwork. 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 Pain Assessment Self Report Pain Assessment Left Knee(s) Reported Pain Level 0 Lowest Pain Intensity 0 Greatest Pain Intensity 1 Lower Extremity Range of Motion Knee Range of Motion Left Knee Flexion Range of Motion - Active 120 Knee Extension Range of Motion - Active 0 Query Text: Lower Extremity Muscle Strength Testing Hip Strength Left Hip Flexion Strength 4+ Good + Hip Extension Strength 4- Good - Hip Abduction Strength 3- Fair - Hip Medial Rotation Strength 3+ Fair + Hip Lateral Rotation Strength 4- Good - Knee Strength Left Knee Flexion Strength 4- Good - Knee Extension Strength 5 Normal Palpation Assessment Palpation mild scar restriction on superior aspect of healed scar Extremity Circumference Assessment Circumference Assessment Location Left Body Part Knee Site Descriptor ([place]) mid-patella Circumference (cm) 50 Noninvolved Side Circumference (cm) 50 Circumference Comments tibial tuberosity: left 48 cm, right :47 cm Balance Assessment Timed Up and Go Test (TUG) (Seconds) 13 Assistive Devices None 5 Time Sit to Stand Time in Seconds 14 5 Time Sit to Stand Comments with UE support, = LE WB Gait Assessment Gait Pattern Antalgic Gait,Circumducted Gait Gait Pattern Observed Decreased Stride Length - Left ,Decreased Stride Length - Right,
== END 2021-04-12 14:18 | disposition home or self-care (01) ==
LOC: ANHPT 10:00
PROVIDERS: PCP Internal Medicine; Visit Provider Orthopaedic Surgery
DX: Z47.1 Aftercare following joint replacement surgery (principal); Z96.652 Presence of left artificial knee joint
CPT/HCPCS: 97110; 97162; 97530

== ENCOUNTER → 2021-09-30 13:34 | Outpatient (CLI) | payer OTHER, SELFPAY ==
--- NOTE | ~2021-09-30 | MMUS_ITS ---
EXAMINATION: MM diagnostic fred BI w wen, US breast BI limited HISTORY: Follow-up bilateral breast asymmetries TECHNIQUE: Additional 3-D tomosynthesis images of the breasts were performed and synthetic 2-D images were generated. CAD analysis was submitted and interpreted. High resolution limited bilateral breast ultrasound was performed. COMPARISON: Comparison to multiple prior studies sequentially, with oldest reviewed study dated 08/2015. BREAST PARENCHYMAL COMPOSITION: Breast composed of scattered areas of fibroglandular density. FINDINGS: MAMMOGRAPHIC FINDINGS: Bilateral breast asymmetries compress with spot and mediolateral views, consistent with superimposed fibroglandular tissue. There are no suspicious masses or architectural distortion in either breast to suggest malignancy. ULTRASOUND: Complete bilateral US of all 4 quadrants of the breasts and retroareolar region was reviewed. Right breast: Normal heterogeneous echotexture without focal solid or cystic mass. Left breast: At 4:00, 4 cm from the nipple, there are 2 adjacent hypoechoic structures measuring 4 mm in aggregate, likely benign cluster of microcysts or intramammary lymph node. IMPRESSION: 1. Probable benign left breast masses at 4:00, 4 cm from the nipple. 2. Recommend 6 month follow-up targeted left breast ultrasound BI-RADS category 3, probably benign findings. Reviewed, dictated and finalized at location A. R PROJECT ENGINEER IMPRESSION: 1. Probable benign left breast masses at 4:00, 4 cm from the nipple. 2. Recommend 6 month follow-up targeted left breast ultrasound BI-RADS category 3, probably benign findings.
== END ==
PROVIDERS: PCP Internal Medicine; Visit Provider Student in an Organized Health Care Education/Training Program
DX: R92.8 Other abnormal and inconclusive findings on diagnostic imaging of breast (principal); N63.23 Unspecified lump in the left breast, lower outer quadrant
CPT/HCPCS: 76642; 77062; 77066; G0279

== ENCOUNTER → 2022-03-21 09:37 | Outpatient (CLI) | payer OTHER, SELFPAY ==
--- NOTE | ~2022-03-21 | US_ITS ---
US breast LT limited DATE: 03/21/2022 09:55 INDICATION: Follow-up of probable benign left breast masses at 4:00 TECHNIQUE: Real-time and color flow imaging targeted to left breast at 4:00 4 cm from nipple COMPARISON: September 30, 2021 bilateral breast ultrasound examination September 30, 2021 bilateral diagnostic mammogram 04/14/2020 bilateral screening mammogram FINDINGS: Stable approximately 2.1 x 4.6 mm bilobed hypoechoic lesion without internal vascularity or suspicious shadowing, unchanged in size since 09/2021. IMPRESSION: BI-RADS Category 2: Benign finding Recommendation: Routine mammographic screening Reviewed, dictated and finalized at Location A. Reviewed, dictated and finalized at location A.
== END ==
PROVIDERS: PCP Family Medicine; Visit Provider Student in an Organized Health Care Education/Training Program
DX: R92.8 Other abnormal and inconclusive findings on diagnostic imaging of breast (principal)
CPT/HCPCS: 76642

== ENCOUNTER 2022-09-11 07:31 | Outpatient (CLI) | payer OTHER, SELFPAY ==
[2022-09-11 07:54] LABS: Basophils Percent Auto 0.5 % (0.2-1.2); Eosinophils Absolute Auto 0.2 K/mm3 (0-0.3); Eosinophils Percent Auto 4.5 % (0-4.4); Hematocrit 39.4 % (37.0-47.0); Hemoglobin 12.8 g/dL (12.0-15.0); Immature Granulocyte Absolute 0.01 K/mm3 (0.00-0.031); Immature Granulocyte Percent A 0.2 % (0-0.5); Lymphocytes Absolute Auto 1.54 K/mm3 (0.9-3.2); Lymphocytes Percent Auto 36.7 % (18.3-44.2); Mean Corpuscular HGB Conc 32.5 g/dl (32-36); Mean Corpuscular Hemoglobin 32.2 pg (26-34); Mean Corpuscular Volume 99.2 fl (80-100); Mean Platelet Volume 9.7 fl (7.4-10.4); Monocytes Absolute Auto 0.4 K/mm3 (0.1-0.6); Monocytes Percent Auto 10.5 % (2.6-8.5); Neutrophils Percent Auto 47.6 % (45.5-73.1); Platelet Count Result 158 k/mm3 (150-375); Red Blood Count 3.97 M/mm3 (4.2-5.4); Red Cell Distribution Width 12.9 % (11.5-14.5); White Blood Count 4.2 K/mm3 (4.5-10.0)
[2022-09-11 08:06] LABS: Alanine Aminotransferase 21 U/L (6-35); Albumin Level 4.1 g/dL (3.5-5.1); Alkaline Phosphatase 58 U/L (38-126); Anion Gap 5 mmol/L (8-16); Aspartate Amino Transferase 26 U/L (14-36); Bilirubin,Total 0.6 mg/dL (0.2-1.3); Blood Urea Nitrogen 21 mg/dL (7-17); Calcium 9.4 mg/dL (8.4-10.2); Carbon Dioxide 29 mmol/L (22-30); Chloride 105 mmol/L (98-107); Cholesterol 189 mg/dL (0-200); Estimated Glomerular Filt Rate > 60; Glucose 92 mg/dL (65-110); HDL Direct 46 mg/dL; Potassium 4.1 mmol/L (3.4-5.0); Sodium 139 mmol/L (137-145); Triglycerides 137 mg/dL (<150)
[2022-09-11 08:17] LABS: LDL Cholesterol Direct 100 mg/dL
== END 2022-09-11 07:32 | disposition home or self-care (01) ==
LOC: ANHLAB 07:32
PROVIDERS: PCP Family Medicine; Visit Provider Family Medicine
DX: Z00.00 Encounter for general adult medical examination without abnormal findings (principal); E55.9 Vitamin D deficiency, unspecified; E53.8 Deficiency of other specified B group vitamins; E78.5 Hyperlipidemia, unspecified; I10 Essential (primary) hypertension
CPT/HCPCS: 36415; 80053; 80061; 82306; 82607; 84443; 85025

== ENCOUNTER → 2023-01-25 12:22 | Outpatient (CLI) | payer OTHER, SELFPAY ==
--- NOTE | ~2023-01-25 | MM_ITS ---
EXAMINATION: MM screening frde BI w wen HISTORY: Screening mammogram TECHNIQUE: Craniocaudal and mediolateral oblique 3-D tomosynthesis images were obtained and synthetic 2-D images were generated. CAD analysis was submitted and interpreted. COMPARISON: 03/21/2022 Limited left breast ultrasound examination 09/30/2021 bilateral diagnostic mammogram and bilateral Limited ultrasound examination 08/15/2021, 04/14/2020 bilateral screening mammogram examinations BREAST PARENCHYMAL COMPOSITION: There are scattered areas of fibroglandular density. FINDINGS: Stable mild fibroglandular asymmetry, not significantly changed since 04/14/2020. There is n o evidence of suspicious mass, calcification, or architectural distortion to suggest malignancy in ei ther breast. There has been no suspicious interval change. IMPRESSION: 1. No mammographic evidence of malignancy. 2. Recommend routine screening mammography in one year. BI-RADS Category 2: Benign finding(s). Reviewed, dictated and finalized at location A.
== END ==
PROVIDERS: PCP Family Medicine; Visit Provider Registered Nurse
DX: Z12.31 Encounter for screening mammogram for malignant neoplasm of breast (principal)
CPT/HCPCS: 77063; 77067

== ENCOUNTER 2023-09-28 08:59 | Outpatient (CLI) | payer MEDICARE, OTHER, SELFPAY ==
[2023-09-28 18:58] LABS: Basophils Percent Auto 0.7 % (0.2-1.2); Eosinophils Absolute Auto 0.1 K/mm3 (0-0.3); Eosinophils Percent Auto 3.3 % (0-4.4); Hematocrit 39.7 % (37.0-47.0); Hemoglobin 12.3 g/dL (12.0-15.0); Immature Granulocyte Absolute 0.01 K/mm3 (0.00-0.031); Immature Granulocyte Percent A 0.2 % (0-0.5); Lymphocytes Absolute Auto 1.42 K/mm3 (0.9-3.2); Lymphocytes Percent Auto 33.8 % (18.3-44.2); Mean Corpuscular Hemoglobin 32.1 pg (26-34); Mean Corpuscular Volume 103.7 fl (80-100); Mean Platelet Volume 10.8 fl (7.4-10.4); Monocytes Absolute Auto 0.5 K/mm3 (0.1-0.6); Monocytes Percent Auto 11.2 % (2.6-8.5); Neutrophils Absolute Auto 2.1 K/mm3 (1.3-6.7); Neutrophils Percent Auto 50.8 % (45.5-73.1); Platelet Count Result 170 k/mm3 (150-375); Red Blood Count 3.83 M/mm3 (4.2-5.4); Red Cell Distribution Width 12.5 % (11.5-14.5); White Blood Count 4.2 K/mm3 (4.5-10.0)
[2023-09-28 19:36] LABS: Alanine Aminotransferase 18 U/L (6-35); Alkaline Phosphatase 69 U/L (38-126); Anion Gap 7 mmol/L (8-16); Aspartate Amino Transferase 41 U/L (14-36); Bilirubin,Total 0.8 mg/dL (0.2-1.3); Blood Urea Nitrogen 27 mg/dL (7-17); Calcium 9.9 mg/dL (8.4-10.2); Carbon Dioxide 28 mmol/L (22-30); Chloride 105 mmol/L (98-107); Cholesterol 165 mg/dL (0-200); Estimated Glomerular Filt Rate > 60; Glucose 83 mg/dL (65-110); HDL Direct 45 mg/dL; Potassium 4.1 mmol/L (3.4-5.0); Sodium 140 mmol/L (137-145); Triglycerides 106 mg/dL (<150); Vitamin D 25 Hydroxy 45.2 ng/mL
[2023-09-28 19:47] LABS: LDL Cholesterol Direct 96 mg/dL
[2023-09-28 20:31] LABS: Vitamin B12 > 1000.0 pg/mL (239-931)
== END 2023-09-28 09:00 | disposition home or self-care (01) ==
LOC: ANHGOSHLAB 09:02
PROVIDERS: PCP Family Medicine; Visit Provider Family Medicine
DX: E78.5 Hyperlipidemia, unspecified (principal); I10 Essential (primary) hypertension; E55.9 Vitamin D deficiency, unspecified; E53.8 Deficiency of other specified B group vitamins; Z78.0 Asymptomatic menopausal state
CPT/HCPCS: 36415; 80053; 80061; 82306; 82607; 84443; 85025

== ENCOUNTER 2024-01-05 07:35 | Outpatient (CLI) | payer MEDICARE, OTHER, SELFPAY ==
[2024-01-05 08:08] LABS: Alanine Aminotransferase 22 U/L (6-35); Alkaline Phosphatase 58 U/L (38-126); Anion Gap 4 mmol/L (4-12); Aspartate Amino Transferase 28 U/L (14-36); Bilirubin,Total 0.8 mg/dL (0.2-1.3); Blood Urea Nitrogen 22 mg/dL (7-17); Calcium 9.7 mg/dL (8.4-10.2); Carbon Dioxide 29 mmol/L (22-30); Chloride 107 mmol/L (98-107); Estimated Glomerular Filt Rate > 60; Glucose 92 mg/dL (65-110); Potassium 3.7 mmol/L (3.4-5.0); Sodium 140 mmol/L (137-145)
== END 2024-01-05 07:36 | disposition home or self-care (01) ==
LOC: ANHLAB 07:37
PROVIDERS: PCP Family Medicine; Visit Provider Family Medicine
DX: R74.01 Elevation of levels of liver transaminase levels (principal)
CPT/HCPCS: 36415; 80053

== ENCOUNTER 2024-10-03 09:31 | Outpatient (CLI) | payer MEDICARE, OTHER, SELFPAY ==
[2024-10-03 09:59] LABS: Basophils Percent Auto 0.5 % (0.2-1.2); Hemoglobin 12.5 g/dL (12.0-15.0); Immature Granulocyte Absolute 0.01 K/mm3 (0.00-0.031); Immature Granulocyte Percent A 0.3 % (0-0.5); Lymphocytes Absolute Auto 1.54 K/mm3 (0.9-3.2); Lymphocytes Percent Auto 40.2 % (18.3-44.2); Mean Corpuscular HGB Conc 32.9 g/dl (32-36); Mean Corpuscular Volume 100.3 fl (80-100); Mean Platelet Volume 10.1 fl (7.4-10.4); Monocytes Absolute Auto 0.4 K/mm3 (0.1-0.6); Monocytes Percent Auto 9.1 % (2.6-8.5); Neutrophils Absolute Auto 1.9 K/mm3 (1.3-6.7); Neutrophils Percent Auto 48.9 % (45.5-73.1); Platelet Count Result 152 k/mm3 (150-375); Red Blood Count 3.79 M/mm3 (4.2-5.4); White Blood Count 3.8 K/mm3 (4.5-10.0)
--- OUTSIDE RECORDS SUMMARY | 2024-10-03 10:06 | XMS_ITS | Encounter Summary ---
Author Organization [facility] Address [address] [place] [id number] Care Team Providers Care Sociology Professor Name Role Phone Unavailable Primary Care Provider Unavailabl e Encounter Details Date Type Department Care Team (Latest Contact Info) Description 07/02/2018 Abstract [facility] , Vero Guo MD Social History Tobacco Use Types Packs/Day Years Used Date Smoking Tobacco: Never Assessed Comments Unknown Sex and Gender Information Value Date Recorded Sex Assigned at Not on file Legal Sex Female 8:10 PM CDT Gender Identity Not on file Sexual Orientation Not on file documented as of this encounter Plan of Treatment Not on file documented as of this encounter Visit Diagnoses Not on filedocumented in this encounter
--- OUTSIDE RECORDS SUMMARY | 2024-10-03 10:06 | XMS_ITS | Clinical Summary ---
Author Organization [facility] Address [address] [place] [id number] Care Team Providers Care Ordnance Mechanic Name Role Phone Unavailable Primary Care Provider Unavailabl e Social History Tobacco Use Types Packs/Day Years Used Date Smoking Tobacco: Never Assessed Comments Unknown Sex and Gender Information Value Date Recorded Sex Assigned at Not on file Legal Sex Female 8:10 PM CDT Gender Identity Not on file Sexual Orientation Not on file Last Filed Vital Signs Vital Sign Reading Time Taken Comments Blood Pressure 146/60 07/13/2014 2:22 PM TELECASTING ENGINEER Pulse 80 07/13/2014 2:22 PM TELECASTING ENGINEER Temperature - - Respiratory Rate - - Oxygen Saturation - - Inhaled Oxygen Concentration - - Weight 114.3 kg (252 lb) 07/13/2014 2:22 PM TELECASTING ENGINEER Height 164.5 cm (5' 4.75 ) 07/13/2014 2:22 PM CS T Body Mass Index 42.26 07/13/2014 2:22 PM TELECASTING ENGINEER Plan of Treatment Health Maintenance Due Date Last Done Comments Colorectal Cancer Screening Colonoscopy (10 Years) 1958 Hepatitis C 1976 DTaP, Tdap and Td Vaccines ( 1 - Tdap) 1977 Mammogram Screening 1998 Zoster Vaccines (1 of 2) 2008 Dexa Scan (General) 2023 Pneumococcal Vaccine: 65+ Ye ars (1 of 1 - PCV) 2023 COVID-19 Vaccine (1 - 2023-2 5 season) 2024 Influenza Adult (#1) 2024 RSV Immunization or 60+ Years (1 - 1-dose 75+ series) 2033 Meningococcal B Vaccine Aged Out No l onger eligible based on patient's age to complete this topic Meningococcal Vaccine Aged Out No sidra batsheva eligible based on patient's age to complete this topic RSV Immunizations Under 20 Months Aged Out No longer eligible based on patient's age to complete this topic
[2024-10-03 10:11] LABS: Hemoglobin A1C 5.7 % (<5.7)
[2024-10-03 10:15] LABS: Alanine Aminotransferase 23 U/L (6-35); Albumin Level 4.1 g/dL (3.5-5.1); Alkaline Phosphatase 63 U/L (38-126); Anion Gap 10 mmol/L (4-12); Aspartate Amino Transferase 31 U/L (14-36); Bilirubin,Total 0.8 mg/dL (0.2-1.3); Blood Urea Nitrogen 19 mg/dL (7-17); Calcium 9.6 mg/dL (8.4-10.2); Carbon Dioxide 28 mmol/L (22-30); Chloride 102 mmol/L (98-107); Cholesterol 160 mg/dL (0-200); Estimated Glomerular Filt Rate > 60; Glucose 94 mg/dL (65-110); HDL Direct 40 mg/dL; Potassium 3.8 mmol/L (3.4-5.0); Sodium 140 mmol/L (137-145); Triglycerides 133 mg/dL (<150)
[2024-10-03 10:26] LABS: LDL Cholesterol Direct 88 mg/dL
[2024-10-03 10:35] LABS: Vitamin D 25 Hydroxy 68.5 ng/mL
[2024-10-03 11:18] LABS: Vitamin B12 > 1000.0 pg/mL (239-931)
[2024-10-03 11:33] LABS: Free T4 Free Thyroxine Reflex 1.42 ng/dL (0.78-2.19)
[2024-10-03 12:18] LABS: Total Triiodothyronine (T3) 1.41 NG/ML (0.97-1.69)
== END 2024-10-03 09:32 | disposition home or self-care (01) ==
PROVIDERS: PCP Family Medicine; Visit Provider Family Medicine
DX: E78.5 Hyperlipidemia, unspecified (principal); I10 Essential (primary) hypertension; R73.9 Hyperglycemia, unspecified; E53.8 Deficiency of other specified B group vitamins; E55.9 Vitamin D deficiency, unspecified
CPT/HCPCS: 36415; 80053; 80061; 82306; 82607; 83036; 84439; 84443; 84480; 85025

== ENCOUNTER 2024-11-01 09:43 | Outpatient (CLI) | payer MEDICARE, OTHER, SELFPAY ==
--- OUTSIDE RECORDS SUMMARY | 2024-11-01 09:46 | XMS_ITS | Encounter Summary ---
Author Organization [facility] Address [address] [place] [id number] Care Team Providers Care Underground Mining Section Foreman Name Role Phone Unavailable Primary Care Provider Unavailabl e Encounter Details Date Type Department Care Team (Latest Contact Info) Description 07/02/2018 Abstract [facility] , Vero Guo MD Social [...]
--- OUTSIDE RECORDS SUMMARY | 2024-11-01 09:46 | XMS_ITS | Clinical Summary ---
Author Organization [facility] Address [address] [place] [id number] Care Team Providers Care Washing Machine Mechanic Name Role Phone Unavailable Primary Care [...] Comments Blood Pressure 146/60 07/13/2014 2:22 PM BOAT MOTOR MECHANIC Pulse 80 07/13/2014 2:22 PM BOAT MOTOR MECHANIC Temperature - - Respiratory Rate - - Oxygen Saturation - - Inhaled Oxygen Concentration - - Weight 114.3 kg (252 lb) 07/13/2014 2:22 PM BOAT MOTOR MECHANIC Height 164.5 cm (5' 4.75 ) 07/13/2014 2:22 PM CS T Body Mass Index 42.26 07/13/2014 2:22 PM BOAT MOTOR MECHANIC Plan of Treatment Health Maintenance Due Date [...]
== END 2024-11-01 09:44 | disposition home or self-care (01) ==
PROVIDERS: PCP Family Medicine; Visit Provider Family Medicine
DX: R94.6 Abnormal results of thyroid function studies (principal)
CPT/HCPCS: 36415; 84443

== ENCOUNTER 2025-03-06 07:44 | Outpatient (CLI) | payer MEDICARE, OTHER, SELFPAY ==
--- NOTE | ~2025-03-06 | MM_ITS ---
EXAMINATION: MM screening [facility] BI w wen HISTORY: Screening mammogram TECHNIQUE: Craniocaudal and mediolateral oblique 3-D tomosynthesis images were obtained and synthetic 2-D images were generated. CAD analysis was submitted and interpreted. COMPARISON: 01/25/2023, 09/30/2021, 08/23/2021 BREAST PARENCHYMAL COMPOSITION:Not Dense. There are scattered areas of fibroglandular density. FINDINGS: No suspicious mass, calcification, or architectural distortion are identified in either estephania ast to suggest malignancy. There has been no suspicious interval change. IMPRESSION: No mammographic evidence of malignancy. Recommend routine screening mammography in one year. BI-RADS Category 1: Negative Reviewed, dictated and finalized at location .
--- OUTSIDE RECORDS SUMMARY | 2025-03-06 07:51 | XMS_ITS | Clinical Summary ---
Author Organization [facility] Address [address] [place] [id number] Care Team Providers Care Donor Recruiter Name Role Phone Unavailable Primary Care Provider [...] Comments Blood Pressure 146/60 07/13/2014 2:22 PM PHP WEB DEVELOPER Pulse 80 07/13/2014 2:22 PM PHP WEB DEVELOPER Temperature - - Respiratory Rate - - Oxygen Saturation - - Inhaled Oxygen Concentration - - Weight 114.3 kg (252 lb) 07/13/2014 2:22 PM PHP WEB DEVELOPER Height 164.5 cm (5' 4.75) 07/13/2014 2:22 PM CS T Body Mass Index 42.26 07/13/2014 2:22 PM PHP WEB DEVELOPER Plan of Treatment Health Maintenance Due Date Last Done Comments Colorectal Cancer Screening Colonoscopy (10 Years) 1958 Hepatitis C 1976 DTaP, Tdap and Td Vaccines ( 1 - Tdap) 1977 Mammogram Screening 1998 Pneumococcal Vaccine: 50+ Ye ars (1 of 1 - PCV) 2008 Zoster Vaccines (1 of 2) 2008 Dexa Scan (General) 2023 COVID-19 Vaccine (1 - 2023-2 5 season) 2024 RSV Immunization or 60+ Years (1 [...]
--- OUTSIDE RECORDS SUMMARY | 2025-03-06 07:51 | XMS_ITS | Encounter Summary ---
Author Organization [facility] Address [address] [place] [id number] Care Team Providers Care Junior Systems Administrator Name Role Phone Unavailable Primary Care Provider Unavailabl e Encounter Details Date Type Department Care Team (Latest Contact Info) Description 07/02/2018 Abstract [facility] , Vero Guo MD Social [...]
== END 2025-03-06 07:45 | disposition home or self-care (01) ==
LOC: ANHIMG 07:47
PROVIDERS: PCP Family Medicine; Visit Provider Nurse Practitioner Obstetrics & Gynecology
DX: Z12.31 Encounter for screening mammogram for malignant neoplasm of breast (principal)
CPT/HCPCS: 77063; 77067

== ENCOUNTER 2025-04-02 03:32 | Day surgery (SDC) | payer MEDICARE, OTHER, SELFPAY ==
[2025-03-18 10:00] VITALS: BMI 36.3
--- OUTSIDE RECORDS SUMMARY | 2025-04-02 03:34 | XMS_ITS | Encounter Summary ---
Author Organization [facility] Address [address] [place] [id number] Care Team Providers Care Plastics Nurse Name Role Phone Unavailable Primary Care Provider Unavailabl e Encounter Details Date Type Department Care Team (Latest Contact Info) Description 07/02/2018 Abstract [facility] , Vero Guo MD Social [...]
--- OUTSIDE RECORDS SUMMARY | 2025-04-02 03:34 | XMS_ITS | Clinical Summary ---
Author Organization [facility] Address [address] [place] [address] Care Team Providers Care Manager Adobe Name Role Phone Unavailable Primary Care Provider [...] Comments Blood Pressure 146/60 07/13/2014 2:22 PM ROUSTABOUT CREW LEADER Pulse 80 07/13/2014 2:22 PM ROUSTABOUT CREW LEADER Temperature - - Respiratory Rate - - Oxygen Saturation - - Inhaled Oxygen Concentration - - Weight 114.3 kg (252 lb) 07/13/2014 2:22 PM ROUSTABOUT CREW LEADER Height 164.5 cm (5' 4.75) 07/13/2014 2:22 PM CS T Body Mass Index 42.26 07/13/2014 2:22 PM ROUSTABOUT CREW LEADER Plan of Treatment Health Maintenance Due Date [...]
[2025-04-02 06:24] VITALS: BP 156/63; PULSE 58; RESP 18; TEMP 36.4; O2SAT 97
[2025-04-02] MEDS: LACTATED RINGERS 1,000 ML 150 ML IV CONT (06:38)
--- NOTE | 2025-04-02 07:21 | WPDANESEPPF ---
Anes - Initial Pre Proc Eval Procedure: Operation Date: 04/02/25 07:30 Proposed Procedures p Screening Colonoscopy - Aram Calderón MD Date/Time: 04/02/25 07:21 Surgeon: Aram Calderón MD Pre Op Diagnosis: malignant neoplasm of colon Patient Data Age: 64 Gender: F Height: 1.65 m Weight: 99.3 kg Last Vital Signs Temp 36.4 C L 04/02/25 06:24 Pulse 58 L 04/02/25 06:24 Resp 18 04/02/25 06:24 BP 156/63 H 04/02/25 06:24 Pulse Ox 97 04/02/25 06:24 O2 Del Method Room Air 04/02/25 06:24 Allergies Allergy/AdvReac Type Severity Reaction Status Date / Time lisinopril Allergy Severe FACIAL Verified 04/02/25 06:22 SWELLING,Lips Swell clindamycin Allergy Intermediate RASH, Verified 04/02/25 06:22 Nausea, Vomiting Penicillins Allergy Intermediate Rash, Verified 04/02/25 06:22 NAUSEA, VOMITING Sulfa (Sulfonamide Allergy Intermediate Hives / Verified 04/02/25 06:22 Antibiotics) Red Face,Rash Home Medications ?Medication ?Instructions ?Recorded ?Confirmed ?Type omega-3 fatty acids 1,000 mg 1,000 mg PO DAILY 07/04/19 04/02/25 History capsule (Fish Oil Concentrate) albuterol sulfate 90 mcg/actuation 1 inh inhalation Q4H PRN shortness 09/09/21 03/18/25 Rx aerosol inhaler (ProAir HFA) of breath or wheezing #8.5 grams mecobalamin (vitamin B12) 1,000 1,000 mcg sublingual DAILY 02/22/22 04/02/25 History mcg disintegrating tablet,sublingual cholecalciferol (vitamin D3) 50 50 mcg PO DAILY 09/04/22 04/02/25 History mcg (2,000 unit) tablet hydrochlorothiazide 12.5 mg tablet 12.5 mg PO QAM #90 tabs 09/18/24 04/02/25 Rx Patient hx anesthesia problems: none Family hx anesthesia problems: none Results Review: All pre-operative results and documents have been reviewed as part of the pre-operative evaluation. [facility] Past Medical History Medical History Chronic pain in right foot Wears glasses History of colon polyps Asthma Urge incontinence Obesity Dyslipidemia HTN (hypertension) Surgical History Surgical History History of arthroplasty of right knee (~2018) History of knee replacement (~02/11/21) left Family History Family History Father Hypertension Family history of chronic obstructive pulmonary disease Mother Hypertension Family history of diabetes mellitus in first degree relative Grandparent Hypertension Diabetes mellitus Other Family history of Alzheimer's disease Family history of arthritis Family history of gout Family history of hearing loss Family history of lung disease Social History Social History Smoking status: Never smoker Second hand tobacco smoke exposure: Yes Alcohol intake: never Substance use: never Substance use type: does not use Lack of Transportation: No Lack of Food: Never True Current Housing: I Have Housing Concerned About Future Housing: No Difficulty Paying Gas/Electric Bills: No Difficulty Paying for Meds: No Currently Unemployed: No Education: Trade/Vocational Certificate Difficulty w/ Childcare or Family Care: No Living arrangements: with family Additional living arrangements comments: MARIO Gender identity (if verbalized by the patient): Female Sexual Orientation (if Verbalized by the Patient): Straight or Heterosexual Spiritual care concerns: No Anes - Eval Final PreProcedure Day of Procedure 04/02/25 07:21 Patient weight: obese Heart: regular rate and rhythm Lungs: clear to auscultation Airway: Mallampati scale class II Neurological: alert and oriented Last oral intake: >/= 8 hours ASA classification: II Emergent: no Anesthetic plan: proceed Anesthesia type and monitoring: general GIVS and standard monitoring Results Review: All pre-operative results and documents have been reviewed as part of the pre-operative evaluation. Informed Consent: The patient's anesthetic plan and its attendant risks and benefits were discussed with the patient/family/POA. Questions were solicited and answers provided to the satisfaction of the patient/family/POA.
--- NOTE | 2025-04-02 07:29 | PM.IMHP ---
H&P: HPI History of Present Illness Date/Time: 04/02/25 07:29 Chief Complaint: History of colon polyps Narrative: The patient has a history of colonic polyps, the last colonoscopy was 5 years ago. Review of Systems Review of Systems: All systems reviewed & are unremarkable except as noted in HPI and below PMFSH Past Medical History Medical History Chronic pain in right foot Wears glasses History of colon polyps Asthma Urge incontinence Obesity Dyslipidemia HTN (hypertension) Surgical History Surgical History History of arthroplasty of right knee (~2018) History of knee replacement (~02/11/21) left Family History Family History Father Hypertension Family history of chronic obstructive pulmonary disease Mother Hypertension Family history of diabetes mellitus in first degree relative Grandparent Hypertension Diabetes mellitus Other Family history of Alzheimer's disease Family history of arthritis Family history of gout Family history of hearing loss Family history of lung disease Social History Social History Smoking status: Never smoker Second hand tobacco smoke exposure: Yes Alcohol intake: never Substance use: never Substance use type: does not use Lack of Transportation: No Lack of Food: Never True Current Housing: I Have Housing Concerned About Future Housing: No Difficulty Paying Gas/Electric Bills: No Difficulty Paying for Meds: No Currently Unemployed: No Education: Trade/Vocational Certificate Difficulty w/ Childcare or Family Care: No Living arrangements: with family Additional living arrangements comments: MARIO Gender identity (if verbalized by the patient): Female Sexual Orientation (if Verbalized by the Patient): Straight or Heterosexual Spiritual care concerns: No Meds Home Medications and Allergies Home Medications ?Medication ?Instructions ?Recorded ?Confirmed ?Type omega-3 fatty acids 1,000 mg 1,000 mg PO DAILY 07/04/19 04/02/25 History capsule (Fish Oil Concentrate) albuterol sulfate 90 mcg/actuation 1 inh inhalation Q4H PRN shortness 09/09/21 03/18/25 Rx aerosol inhaler (ProAir HFA) of breath or wheezing #8.5 grams mecobalamin (vitamin B12) 1,000 1,000 mcg sublingual DAILY 02/22/22 04/02/25 History mcg disintegrating tablet,sublingual cholecalciferol (vitamin D3) 50 50 mcg PO DAILY 09/04/22 04/02/25 History mcg (2,000 unit) tablet hydrochlorothiazide 12.5 mg tablet 12.5 mg PO QAM #90 tabs 09/18/24 04/02/25 Rx Allergies Allergy/AdvReac Type Severity Reaction Status Date / Time lisinopril Allergy Severe FACIAL Verified 04/02/25 06:22 SWELLING,Lips Swell clindamycin Allergy Intermediate RASH, Verified 04/02/25 06:22 Nausea, Vomiting Penicillins Allergy Intermediate Rash, Verified 04/02/25 06:22 NAUSEA, VOMITING Sulfa (Sulfonamide Allergy Intermediate Hives / Verified 04/02/25 06:22 Antibiotics) Red Face,Rash Vital Signs Vital Signs - 24 hr 04/02/25 06:24 Temperature 97.5 F L Pulse Rate 58 L Respiratory Rate 18 Blood Pressure 156/63 H Pulse Oximetry 97 Oxygen Delivery Room Air Exam Const: General: cooperative and healthy appearing Resp: Effort & Inspection: normal respiratory effort and able to speak in complete sentences Auscultation: clear to auscultation bilaterally Cardio: Rate: regular rate Rhythm: regular rhythm GI: Inspection: normal to inspection GI Palp: No No hepatosplenomegaly present Auscultation: normal bowel sounds Rectal Exam: deferred Skin: General skin exam: normal color Psych: Appearance: grossly normal Mental Status: mental status grossly normal Assessment and Plan Assessment and plan (1) History of colonic polyps: Code(s): Z86.0100 - Personal history of colon polyps, unspecified Status: Acute Assessment and Plan: The patient is deemed a good candidate for the procedure. Consent signed. Will proceed.
[2025-04-02] MEDS: SIMETHICONE ORAL SUSPENSION 20 MG/0.3 ML 30 ML BOTTLE 0.6 ML IRRIGATION (07:39)
--- NOTE | 2025-04-02 07:48 | S_PTH ---
PATIENT: Cristina Sewell LOC: [facility] #:[id number] AGE/SX: 64/F ROOM: RE04/02/[address]: Aram Calderón MD : 1960 BED: DIS: 04/02/2025 SPEC #: [id number] RECD: 04/02/25 09:30 STATUS: VISHNU REQ #: [id number] FERN: 04/02/25 07:[address]: Aram Calderón DEPT: [facility] Surgical RECD BY: Sania Everett ENTERED: 04/02/25 09:31 SP TYPE: Surgical OTHR DR: Janene Mora MD Tissues: A - Colon Polypectomy Procedures: Hematoxylin and Eosin Stain Gross and Microscopic Level 4
[2025-04-02 07:50] VITALS: BP 101/42; PULSE 61; RESP 17; O2SAT 100
[2025-04-02 08:00] VITALS: BP 117/64; PULSE 60; RESP 16; O2SAT 100
[2025-04-02 08:10] VITALS: BP 120/58; PULSE 58; RESP 18; O2SAT 100
== END 2025-04-02 08:23 | disposition home or self-care (01) ==
PROVIDERS: PCP Family Medicine; Referring Provider Family Medicine; Visit Provider Internal Medicine Gastroenterology
PROC: 0DJD8ZZ Inspection of Lower Intestinal Tract, Via Natural or Artificial Opening Endoscopic (ICD-10-PCS; CPT 45378; principal; 2025-04-02 07:30)
DX: Z12.11 Encounter for screening for malignant neoplasm of colon (principal); K63.5 Polyp of colon; K57.30 Diverticulosis of large intestine without perforation or abscess without bleeding; E78.5 Hyperlipidemia, unspecified; I10 Essential (primary) hypertension; J45.909 Unspecified asthma, uncomplicated; N39.41 Urge incontinence; G89.29 Other chronic pain; M79.671 Pain in right foot; E66.9 Obesity, unspecified; Z68.36 Body mass index [BMI] 36.0-36.9, adult; Z79.51 Long term (current) use of inhaled steroids; Z98.890 Other specified postprocedural states
CPT/HCPCS: 45385; 88305; J2003; J2704; J7120